=== PATIENT | female | born 1960 | race Caucasian/White ===

== ENCOUNTER 2017-07-16 12:07 | Emergency (ER) | payer OTHER ==
[2017-07-16] MEDS: ONDANSETRON PF 4 MG/2 ML VIAL. IV ×2 (12:37)
[2017-07-16] MEDS: IV NORMAL SALINE 1000ML BAG 1,000 ML IV ×2 (12:37)
[2017-07-16] MEDS ORDERED: CONTRAST GIVEN MC ×2 (12:45)
[2017-07-16 12:50] LABS: ADD MAN DIFF? NO
[2017-07-16 12:58] LABS: BASO % 0 % (0-3); EOS % 0 % (0-3); HEMATOCRIT 39.1 % (36.0-47.0); HEMOGLOBIN 13.4 g/dL (12.0-15.5); LYMPH # 0.9 x10^3/uL (1.0-4.8); LYMPH % 11 % (24-48); MEAN CORPUSCULAR HEMOGLOBIN 31 pg (25-35); MEAN CORPUSCULAR HGB CONC 34 g/dL (31-37); MEAN CORPUSCULAR VOLUME 91 fL (79-100); MONO # 0.5 x10^3/uL (0.0-1.1); MONO % 5 % (0-9); NEUT # 7.1 x10^3uL (1.8-7.7); NEUT % 83 % (31-73); PLATELET COUNT 177 x10^3/uL (140-400); RED BLOOD COUNT 4.27 x10^6/uL (3.50-5.40); RED CELL DISTRIBUTION WIDTH 14.4 % (11.5-14.5); WHITE BLOOD COUNT 8.5 x10^3/uL (4.0-11.0)
[2017-07-16 13:02] LABS: ANION GAP 8 (6-14); BLOOD UREA NITROGEN 12 mg/dL (7-20); BUN/CREATININE RATIO 9 (6-20); CALCIUM 9.1 mg/dL (8.5-10.1); CARBON DIOXIDE 29 mmol/L (21-32); CHLORIDE 103 mmol/L (98-107); CREATININE 1.3 mg/dL (0.6-1.0); GFR 42.2; GLUCOSE 127 mg/dL (70-99); POTASSIUM 4.3 mmol/L (3.5-5.1); SODIUM 140 mmol/L (136-145)
[2017-07-16 13:08] LABS: ALBUMIN 3.4 g/dL (3.4-5.0); ALBUMIN/GLOBULIN RATIO 1.1 (1.0-1.7); ALK PHOS 122 U/L (46-116); ALT (SGPT) 26 U/L (14-59); AST (SGOT) 17 U/L (15-37); TOTAL BILIRUBIN 0.5 mg/dL (0.2-1.0); TOTAL PROTEIN 6.4 g/dL (6.4-8.2)
[2017-07-16 13:10] LABS: TROPONINI < 0.017 ng/mL (0.000-0.055)
[2017-07-16] MEDS: IOHEXOL 300 MG/ML 100ML VIAL. IV ×2 (13:14)
== END 2017-07-16 15:00 | disposition home or self-care (01) ==
LOC: ER 12:07
DX: R42 Dizziness and giddiness (principal); R11.2 Nausea with vomiting, unspecified; H93.8X9 Other specified disorders of ear, unspecified ear
CPT/HCPCS: 36415; 70450; 70496; 70498; 80053; 84484; 85025; 93005; 96361; 96374; 96375; 99285-25; J2060; J2405; J7030; Q9967